=== PATIENT | female | born 1985 | race Hispanic/Latino ===

== ENCOUNTER 2017-11-10 12:24 | Emergency (ER) | payer BC ==
[2017-11-10] MEDS ORDERED: Sodium Chloride 0.9% 1,000 ML IV STA (14:05)
--- NOTE | 2017-11-10 14:35 | ED PDOC ---
HPI: Abdomen Time Seen by Provider: 11/10/17 13:35 Chief Complaint (Nursing): Abdominal Pain Chief Complaint (Provider): Abdominal pain, dairrhea, decreased appetite History Per: Patient History/Exam Limitations: no limitations Onset/Duration Of Symptoms: Days (3) Outside of [place] travel?: No Current Symptoms Are (Timing): Still Present Context: Food Location Of Pain/Discomfort: Diffuse Quality Of Discomfort: Sharp Associated Symptoms: Fever (2 days ago). denies: Chills Exacerbating Factors: None Additional Complaint(s): 32 yo female with no medical problems presents with 3 days of diarrhea. Pt was running an obstacle race in [place] and originally thought she was anxious from the race since it was the day before. Pt states it continued and the second day she had a fever of 100.5. Pt seen at an urgent care for evaluation and given 2 L NS. Pt states she was not feeling better and was sent her for r/o appendicitis. PT sates she has not eaten in 3 days. Past Medical History Reviewed: Historical Data, Nursing Documentation, Vital Signs Vital Signs: Last Vital Signs Temp 98 F 11/10/17 18:13 Pulse 64 11/10/17 12:48 Resp 16 11/10/17 12:48 BP 114/76 11/10/17 12:48 Pulse Ox 100 11/10/17 16:31 - Medical History PMH: No Chronic Diseases - Surgical History Surgical History: Tonsillectomy - Family History Family History: States: Unknown Family Hx - Living Arrangements Living Arrangements: With Family - Social History Current smoker - smoking cessation education provided: No - Home Medications Home Medications: Ambulatory Orders Medication Instructions Recorded Naproxen 500 mg PO BID PRN #20 tab 02/12/16 Ciprofloxacin [Cipro] 500 mg PO BID #20 tab 11/10/17 Metoclopramide [Reglan] 10 mg PO Q8H PRN #15 tab 11/10/17 metroNIDAZOLE [Flagyl] 500 mg PO TID #30 tab 11/10/17 - Allergies Allergies/Adverse Reactions: Allergies Allergy/AdvReac Type Severity Reaction Status Date / Time No Known Allergies Allergy Verified 02/11/16 22:05 Review of Systems ROS Statement: Except As Marked, All Systems Reviewed And Found Negative Constitutional: Positive for: Fever, Chills, Sweats Gastrointestinal: Positive for: Nausea, Abdominal Pain, Diarrhea - Laboratory Results Result Diagrams: 11/10/17 14:46 11/10/17 14:46 - ECG O2 Sat by Pulse Oximetry: 100 Medical Decision Making Medical Decision Making: Pt reports no nausea on re-evaluation at 1630. PT sates she feels like she is having less spasms in the abdominal area. Pt states she is still having a lot of abdominal pain. CT pending. 1800 - CT showing enteritis Disposition - Clinical Impression Clinical Impression: Enteritis - Patient ED Disposition Is Patient to be Admitted: No Counseled Patient/Family Regarding: Diagnosis, Need For Followup, Rx Given - Disposition Disposition: Routine/Home Disposition Time: 18:14 Condition: GOOD Prescriptions: Ciprofloxacin [Cipro] 500 mg PO BID #20 tab Metoclopramide [Reglan] 10 mg PO Q8H PRN #15 tab PRN Reason: Nausea/Vomiting metroNIDAZOLE [Flagyl] 500 mg PO TID #30 tab Instructions: Diarrhea in Adolescents and Adults Forms: [employer] [facility] (Italian)
[2017-11-10] MEDS ORDERED: Metoclopramide 10 mg/10 ml Cup PO STA (14:39)
[2017-11-10 14:49] LABS: BASO % 0.4 % (0.0-2.0); EOS # 0.2 K/uL (0.0-0.7); EOS % 3.4 % (0.0-4.0); HEMOGLOBIN 13.9 g/dL (12.0-16.0); LYMPH # 0.5 K/uL (1.0-4.3); LYMPH % 9.2 % (20.0-40.0); MEAN CELL VOLUME 93.6 fl (81.0-99.0); MEAN CORPUSCULAR HEMOGLOBIN 31.6 pg (27.0-31.0); MEAN CORPUSCULAR HGB CONC 33.7 g/dL (33.0-37.0); MEAN PLATELET VOLUME 8.5 fl (7.2-11.7); MONO # 0.8 K/uL (0.0-0.8); MONO % 14.2 % (0.0-10.0); NEUT # 4.3 K/uL (1.8-7.0); NEUT % 72.8 % (50.0-75.0); NRBC % 0.1 % (0.0-0.0); PLATELET COUNT 152 K/uL (130-400); RBC 4.39 Mil/uL (3.80-5.20); RED CELL DISTRIBUTION WIDTH 13.6 % (11.5-14.5)
[2017-11-10 15:00] LABS: ALB/GLOB RATIO 1.4 (1.0-2.1); ALBUMIN 3.7 g/dL (3.5-5.0); ALT/SGPT 184 U/L (9-52); AST/SGOT 162 U/L (14-36); BLOOD UREA NITROGEN 8 mg/dl (7-17); CALCIUM 8.6 mg/dL (8.4-10.2); GFR AFRICAN-AMERICAN > 60; GFR NON-AFRICAN AMERICAN > 60
[2017-11-10 15:59] LABS: BANDS 4 % (0-2); EOSINOPHIL 3 % (0-7); LYMPHOCYTE 10 % (20-50); MONOCYTE 14 % (0-10); NEUTROPHIL 66 % (42-75); PLATELET ESTIMATE NORMAL (NORMAL); REACTIVE LYMPHOCYTES 3 % (0-0); TOTAL CELLS COUNTED 100
[2017-11-10] MEDS ORDERED: Iohexol 300 50 ML ONE (16:54)
--- NOTE | 2017-11-10 17:50 | CT ---
PROCEDURE: CT Abdomen and Pelvis with contrast HISTORY: Right lower quadrant pain, diarrhea. Negative test (concurrent with this examination). COMPARISON: None. TECHNIQUE: Contrast dose: 95 cc Omnipaque 300. Radiation dose: Total exam DLP = 351.71 mGy-cm. This CT exam was performed using one or more of the following dose reduction techniques: Automated exposure control, adjustment of the mA and/or kV according to patient size, and/or use of iterative reconstruction technique. FINDINGS: LOWER THORAX: Unremarkable. LIVER: Hepatic steatosis. Periportal edema. Findings are nonspecific. GALLBLADDER AND BILE DUCTS: No visible gallstones. Pericholecystic fluid identified. PANCREAS: Unremarkable. No gross lesion or ductal dilatation. SPLEEN: Unremarkable. ADRENALS: Unremarkable. No mass. KIDNEYS AND URETERS: Unremarkable. No hydronephrosis. No solid mass. VASCULATURE: Unremarkable. No aortic aneurysm. BOWEL: Fluid filled loops of small bowel which are nondilated may reflect mild enteritis. Constipation without fecal impaction or obstruction. APPENDIX: A normal appendix is not visualized. PERITONEUM: Unremarkable. No free fluid. No free air. LYMPH NODES: Unremarkable. No enlarged lymph nodes. BLADDER: Unremarkable. REPRODUCTIVE: Probable right adnexal cyst 3 cm. Trace free fluid identified in the pelvis/cul de sac. Intrauterine contraceptive device (IUD) identified BONES: No acute fracture. OTHER FINDINGS: None. IMPRESSION: Findings suggestive of mild enteritis. Nonvisualization of the appendix. Simple cyst right adnexa. This measures approximately 3 cm. Additional benign and/or incidental findings described above. Limitations of the current examination: Absence oral contrast and minimal abdominal and pelvic fat.
[2017-11-10 18:14] VITALS: BP 105/64; PULSE 73; RESP 18; TEMP 99.6
[2017-11-10 18:16] VITALS: O2SAT 100
== END 2017-11-10 18:39 | disposition home or self-care (01) ==
LOC: H.ER 12:24
DX: K52.9 Noninfective gastroenteritis and colitis, unspecified (principal)
CPT/HCPCS: 74177; 80053; 81025; 85025; 96374; 99284; J2270; J7040; Q9967